=== PATIENT | female | born 1935 | race Caucasian/White ===

== ENCOUNTER 2021-04-13 11:23 | Inpatient (IN) ==
[2021-04-13] MEDS ORDERED: Lidocaine 2% PF 5 ML VIAL ONE (13:35)
[2021-04-13] MEDS ORDERED: Propofol 10 MG/ML 20 ML BTL ONE ×2 (13:35→15:08)
[2021-04-13] MEDS ORDERED: fentaNYL 250 mcg/5 ml 50 MCG/ML 5 ml VIAL (250 MCG) ONE (13:35)
[2021-04-13] MEDS ORDERED: Midazolam 2 mg/2 ml VIAL 1 mg/ml 2 ml VIAL (2 mg) ONE (13:35)
[2021-04-13] MEDS ORDERED: Etomidate 20 mg/10 ml 2 MG/ML 10 ml VIAL ONE (13:38)
[2021-04-13] MEDS ORDERED: Phenylephrine IV 10 MG/ML 1 ml VIAL ONE (13:42)
[2021-04-13] MEDS ORDERED: Ertapenem 1 GM in NS 0.9% 50 ML IVPB ONE (14:30)
[2021-04-13] MEDS ORDERED: Dexamethasone IV 4 MG/ML VIAL 1 ml VIAL ONE (15:14)
[2021-04-13] MEDS ORDERED: Ondansetron 4 mg VIAL 2 MG/ML 2 ml VIAL ONE (15:14)
[2021-04-13] MEDS ORDERED: ROPIVACAINE 5 MG/ML 30 ML BTL (0.5%) ONE (16:06)
[2021-04-13] MEDS ORDERED: Dexmedetomidine 200 mcg/2 ml 2 ml VIAL (200 mcg) ONE (16:09)
[2021-04-13] MEDS ORDERED: Acetaminophen IV 1 GM/100ML 100 ML IV ONE (16:14)
[2021-04-13] MEDS ORDERED: Acetaminophen IV 1 GM/100ML 100 ML IV PRN (16:48)
[2021-04-13] MEDS ORDERED: Ondansetron 4 mg VIAL 2 MG/ML 2 ml VIAL IV PRN ×2 (16:52→18:16)
[2021-04-13] MEDS ORDERED: D5W 1/2 NS KCl 20 meq 1000 ml 1,000 ML IV SCH (17:00)
[2021-04-13] MEDS ORDERED: fentaNYL 100 mcg/2 ml 50 MCG/ML VIAL ONE (17:53)
[2021-04-13] MEDS ORDERED: DiMENhydriNATE IV 50 mg/ml 1 ml VIAL IV PUSH PRN (18:16)
[2021-04-13] MEDS ORDERED: Naloxone 0.4 mg VIAL 0.4 mg/ml 1 ml VIAL IV PRN (18:16)
[2021-04-13] MEDS ORDERED: diPHENhydraMINE IV 50 MG/ML 1 ml VIAL (BENADRYL) IV PRN (18:16)
[2021-04-13] MEDS ORDERED: fentaNYL 100 mcg/2 ml 50 MCG/ML VIAL IV PRN (18:16)
[2021-04-14] MEDS: Heparin 5000 UNITS/ML 1 mL VIAL SUBCUT SCH ×3 (05:28→22:13)
[2021-04-14 06:04] LABS: ABS Lymphocytes 0.5 10^3/ul (1.0-4.8); ABS Monocytes 1.1 10^3/ul (0-0.8); ABS Neutrophils 10.3 10^3/ul (1.5-7.7); Hematocrit 32 % (35-47); Hemoglobin 10.3 g/dL (12.0-16.0); Lymphocyte % 4.4 %; Mean Corpuscular HGB Conc 32 g/dL (31-36); Mean Corpuscular Hemoglobin 30 pg (27-31); Mean Corpuscular Volume 93 fL (80-97); Mean Platelet Volume 7.4 fL (7.4-10.4); Platelet Count 179 10^3/uL (150-450); Red Blood Count 3.48 10^6 /uL (3.70-4.87); Red Cell Distribution Width 15 % (10-15)
[2021-04-14 06:49] LABS: Calcium 8.1 mg/dL (8.6-10.3); Potassium 3.9 mmol/L (3.5-5.0); eGFR CKD-EPI 50.7 (>60)
[2021-04-14] MEDS: Aspirin EC 81 mg TAB.EC (enteric coated) PO SCH (08:23)
[2021-04-14] MEDS: D5W 1/2 NS KCl 20 meq 1000 ml 1,000 ML IV SCH ×2 (09:30→19:12)
[2021-04-15] MEDS: D5W 1/2 NS KCl 20 meq 1000 ml 1,000 ML IV SCH ×3 (03:10→19:48)
[2021-04-15 05:55] LABS: ABS Eosinophils 0.2 10^3/ul (0-0.6); ABS Lymphocytes 0.9 10^3/ul (1.0-4.8); ABS Monocytes 1.2 10^3/ul (0-0.8); ABS Neutrophils 7.1 10^3/ul (1.5-7.7); Eosinophil % 2.2 %; Hematocrit 30 % (35-47); Hemoglobin 9.8 g/dL (12.0-16.0); Lymphocyte % 9.8 %; Mean Corpuscular HGB Conc 33 g/dL (31-36); Mean Corpuscular Hemoglobin 31 pg (27-31); Mean Corpuscular Volume 93 fL (80-97); Mean Platelet Volume 7.5 fL (7.4-10.4); Platelet Count 170 10^3/uL (150-450); Red Blood Count 3.17 10^6 /uL (3.70-4.87); Red Cell Distribution Width 15 % (10-15); White Blood Count 9.4 10^3/uL (3.5-10.8)
[2021-04-15] MEDS: Heparin 5000 UNITS/ML 1 mL VIAL SUBCUT SCH ×3 (06:25→23:32)
[2021-04-15 06:29] LABS: Blood Urea Nitrogen 27 mg/dL (6-24); CO2 Carbon Dioxide 25 mmol/L (22-32); Calcium 7.9 mg/dL (8.6-10.3); Glucose 115 mg/dL (70-100); Potassium 4.3 mmol/L (3.5-5.0); Sodium 139 mmol/L (135-145); Total Iron Binding Capacity 258 mcg/dL (250-450); Transferrin 184 mg/dL (203-362); eGFR CKD-EPI 57.6 (>60)
[2021-04-15 06:40] LABS: Anion Gap 2 mmol/L (2-11); Chloride 112 mmol/L (101-111)
[2021-04-15 06:41] LABS: % Iron Saturation 8 % (15-55); Iron < 20 ug/dL (50-212); Unsaturated Iron Binding 238 ug/dL
[2021-04-15 06:49] LABS: Ferritin 59.6 ng/mL (11-307)
[2021-04-15 06:52] LABS: Folate 8.97 ng/mL (5.90-24.80)
[2021-04-15 06:54] LABS: Vitamin B12 649 pg/mL (180-914)
[2021-04-15] MEDS: Aspirin EC 81 mg TAB.EC (enteric coated) PO SCH (09:44)
[2021-04-16] MEDS: Heparin 5000 UNITS/ML 1 mL VIAL SUBCUT SCH ×3 (06:31→21:38)
[2021-04-16] MEDS: D5W 1/2 NS KCl 20 meq 1000 ml 1,000 ML IV SCH (08:13)
[2021-04-16] MEDS: Aspirin EC 81 mg TAB.EC (enteric coated) PO SCH (09:39)
[2021-04-17] MEDS: Heparin 5000 UNITS/ML 1 mL VIAL SUBCUT SCH ×3 (06:10→22:20)
[2021-04-17] MEDS ORDERED: levETIRAcetam LIQ 500 MG/5 ML UDC PO SCH (09:00)
[2021-04-17] MEDS: Aspirin EC 81 mg TAB.EC (enteric coated) PO SCH (09:38)
[2021-04-17 11:36] LABS: Hematocrit 37 % (35-47); Mean Corpuscular HGB Conc 33 g/dL (31-36); Mean Corpuscular Hemoglobin 30 pg (27-31); Mean Corpuscular Volume 90 fL (80-97); Mean Platelet Volume 7.3 fL (7.4-10.4); Platelet Count 255 10^3/uL (150-450); Red Blood Count 4.07 10^6 /uL (3.70-4.87); Red Cell Distribution Width 15 % (10-15); White Blood Count 18.5 10^3/uL (3.5-10.8)
[2021-04-17 12:03] LABS: Calcium 8.5 mg/dL (8.6-10.3); Potassium 3.9 mmol/L (3.5-5.0)
[2021-04-17 12:08] LABS: eGFR CKD-EPI 57.6 (>60)
[2021-04-17 12:38] LABS: ABS Basophils 0.1 10^3/ul (0-0.2); ABS Lymphocytes 0.4 10^3/ul (1.0-4.8); ABS Monocytes 1.4 10^3/ul (0-0.8); ABS Neutrophils 16.5 10^3/ul (1.5-7.7); Eosinophil % 0.1 %
[2021-04-17] MEDS ORDERED: NS 0.9% 500 ml BAG 500 ML IV ONE (12:44)
[2021-04-17] MEDS ORDERED: Zosyn per Pharmacy NOTE FOLLOW UP SCH (13:00)
[2021-04-17] MEDS ORDERED: D5W 1/2 NS 40 Meq KCL 1000 ml 1,000 ML IV SCH (13:00)
[2021-04-17] MEDS ORDERED: Neomycin/Polym/Bacit TOP OINT 15 GM TOPICAL SCH (13:00)
[2021-04-17] MEDS ORDERED: Piperacillin/Tazobac ADVAN 3.375 GM in NS 0.9% 100 ml BAG 100 ML IV ONE (13:15)
[2021-04-17 13:20] LABS: Urine Appearance Clear; Urine Bilirubin Negative (Negative); Urine Blood Negative (Negative); Urine Color Yellow; Urine Glucose Negative (Negative); Urine Ketones Negative (Negative); Urine Nitrite Negative (Negative); Urine Protein Negative (Negative); Urine Specific Gravity 1.014 (1.002-1.030); Urine Urobilinogen Positive (Negative)
[2021-04-17] MEDS ORDERED: Iodixanol (CONTRAST) 320 MG/ML 100 ML SDV IV ONE (13:22)
[2021-04-17] MEDS: Neomycin/Polym/Bacit TOP OINT 15 GM TOPICAL SCH ×2 (13:54→22:20)
[2021-04-17] MEDS ORDERED: Propofol 10 MG/ML 20 ML BTL ONE (15:04)
[2021-04-17] MEDS ORDERED: Rocuronium 50 mg VIAL 10 mg/ml 5 ml VIAL (50 mg) ONE (15:07)
[2021-04-17] MEDS ORDERED: Lidocaine 2% PF 5 ML VIAL ONE (15:07)
[2021-04-17] MEDS: Acetaminophen IV 1 GM/100ML 100 ML IV SCH (15:16)
[2021-04-17] MEDS: D5W 1/2 NS 40 Meq KCL 1000 ml 1,000 ML IV SCH (15:16)
[2021-04-17] MEDS ORDERED: Bupivacaine 0.25% w/EPI 10 ML SDV ONE (15:20)
[2021-04-17] MEDS ORDERED: Ondansetron 4 mg VIAL 2 MG/ML 2 ml VIAL IV PRN (17:23)
[2021-04-17] MEDS ORDERED: HYDROmorphone 1 MG/1 ML SYRINGE IV PRN (17:23)
[2021-04-17] MEDS ORDERED: Naloxone 0.4 mg VIAL 0.4 mg/ml 1 ml VIAL IV PRN (17:23)
[2021-04-17] MEDS: ZOSYN 3.375 GM Q8H per EXTENDED INFUSION IV SCH (20:26)
[2021-04-17] MEDS ORDERED: Lactated Ringers 500 ml BAG 500 ML IV ONE (20:38)
[2021-04-17 21:36] LABS: Hematocrit 34 % (35-47); Hemoglobin 11.1 g/dL (12.0-16.0); Mean Corpuscular HGB Conc 32 g/dL (31-36); Mean Corpuscular Hemoglobin 29 pg (27-31); Mean Corpuscular Volume 91 fL (80-97); Mean Platelet Volume 7.3 fL (7.4-10.4); Platelet Count 254 10^3/uL (150-450); Red Blood Count 3.79 10^6 /uL (3.70-4.87); Red Cell Distribution Width 15 % (10-15); White Blood Count 18.7 10^3/uL (3.5-10.8)
[2021-04-17 22:15] LABS: ABS Lymphocytes 0.4 10^3/ul (1.0-4.8); ABS Monocytes 0.9 10^3/ul (0-0.8); ABS Neutrophils 17.3 10^3/ul (1.5-7.7); Calcium 7.9 mg/dL (8.6-10.3); Eosinophil % 0.1 %; Lymphocyte % 2.4 %; Macrocytosis 1+; Microcytosis 1+; Potassium 4.1 mmol/L (3.5-5.0)
[2021-04-17] MEDS ORDERED: Lactated Ringers 1000 ml BAG 1,000 ML IV ONE (22:15)
[2021-04-18] MEDS: Acetaminophen IV 1 GM/100ML 100 ML IV SCH ×4 (00:12→22:28)
[2021-04-18] MEDS: levETIRAcetam IV 250 MG in NS 0.9% 100 ml BAG 100 ML IVPB SCH ×3 (00:12→21:19)
[2021-04-18] MEDS: ZOSYN 3.375 GM Q8H per EXTENDED INFUSION IV SCH (03:38)
[2021-04-18] MEDS: metroNIDAZOLE IV 500 MG/100ML 500 MG/100 ML BAG IVPB SCH ×3 (04:11→23:08)
[2021-04-18 04:14] LABS: Hematocrit 35 % (35-47); Hemoglobin 11.3 g/dL (12.0-16.0)
[2021-04-18] MEDS: Vancomycin SOL ORALSYR 50 MG/ML ML PO SCH ×5 (04:56→21:30)
[2021-04-18] MEDS: Levothyroxine 100 MCG/5 ML VIAL IV SCH (06:02)
[2021-04-18] MEDS: Heparin 5000 UNITS/ML 1 mL VIAL SUBCUT SCH (06:02)
[2021-04-18 07:10] LABS: Hematocrit 35 % (35-47); Hemoglobin 11.5 g/dL (12.0-16.0); Mean Corpuscular HGB Conc 33 g/dL (31-36); Mean Corpuscular Hemoglobin 30 pg (27-31); Mean Corpuscular Volume 91 fL (80-97); Mean Platelet Volume 7.9 fL (7.4-10.4); Platelet Count 252 10^3/uL (150-450); Red Blood Count 3.84 10^6 /uL (3.70-4.87); Red Cell Distribution Width 15 % (10-15)
[2021-04-18 07:23] LABS: Calcium 7.7 mg/dL (8.6-10.3); Magnesium 1.6 mg/dL (1.9-2.7); Potassium 4.2 mmol/L (3.5-5.0)
[2021-04-18 07:29] LABS: eGFR CKD-EPI 42.1 (>60)
[2021-04-18 07:58] LABS: Toxic Granulation 1+
[2021-04-18 08:00] LABS: ABS Lymphocytes 0.4 10^3/ul (1.0-4.8); ABS Neutrophils 13.6 10^3/ul (1.5-7.7); Eosinophil % 0.1 %; Lymphocyte % 2.6 %
[2021-04-18 08:01] LABS: Dohle Bodies Present
[2021-04-18] MEDS ORDERED: Magnesium Sulfate 2 gm BAG 2 GM/50 ML BAG IVPB ONE (08:08)
[2021-04-18 08:28] LABS: Anisocytosis 1+
[2021-04-18] MEDS: Neomycin/Polym/Bacit TOP OINT 15 GM TOPICAL SCH ×2 (08:51→21:37)
[2021-04-18] MEDS: D5W 1/2 NS 40 Meq KCL 1000 ml 1,000 ML IV SCH ×2 (09:10→20:38)
[2021-04-19] MEDS: Acetaminophen IV 1 GM/100ML 100 ML IV SCH ×3 (05:20→23:13)
[2021-04-19 05:54] LABS: Hematocrit 28 % (35-47); Hemoglobin 8.7 g/dL (12.0-16.0); Mean Corpuscular HGB Conc 31 g/dL (31-36); Mean Corpuscular Hemoglobin 30 pg (27-31); Mean Corpuscular Volume 98 fL (80-97); Mean Platelet Volume 8.3 fL (7.4-10.4); Platelet Count 185 10^3/uL (150-450); Red Blood Count 2.87 10^6 /uL (3.70-4.87); Red Cell Distribution Width 16 % (10-15); White Blood Count 6.9 10^3/uL (3.5-10.8)
[2021-04-19] MEDS: Levothyroxine 100 MCG/5 ML VIAL IV SCH (06:26)
[2021-04-19] MEDS: metroNIDAZOLE IV 500 MG/100ML 500 MG/100 ML BAG IVPB SCH ×3 (06:26→23:56)
[2021-04-19 07:17] LABS: Anisocytosis 1+; Macrocytosis 1+; Toxic Granulation 1+
[2021-04-19 07:18] LABS: Polychromasia 1+
[2021-04-19 07:19] LABS: Burr Cells 2+
[2021-04-19 07:26] LABS: ABS Eosinophils 0.1 10^3/ul (0-0.6); ABS Lymphocytes 0.3 10^3/ul (1.0-4.8); ABS Monocytes 0.7 10^3/ul (0-0.8); ABS Neutrophils 5.9 10^3/ul (1.5-7.7); Eosinophil % 0.7 %
[2021-04-19 07:52] LABS: Calcium 7.4 mg/dL (8.6-10.3); Magnesium 2.7 mg/dL (1.9-2.7)
[2021-04-19 08:05] LABS: Potassium 6.5 mmol/L (3.5-5.0)
[2021-04-19] MEDS ORDERED: CALCIUM GLUCONATE 1GM/50ML NS 1 GM/50 ML BAG IV ONE (08:12)
[2021-04-19] MEDS ORDERED: Furosemide 40 mg/4 ml IV VIAL IV SLOW PU ONE (08:14)
[2021-04-19] MEDS ORDERED: Lactated Ringers 1000 ml BAG 1,000 ML IV ONE ×3 (08:14→10:33)
[2021-04-19] MEDS ORDERED: Dextrose 50% Syringe 50 ml 25 GM/50 ML SYRINGE IV PUSH ONE (08:17)
[2021-04-19] MEDS: Neomycin/Polym/Bacit TOP OINT 15 GM TOPICAL SCH ×2 (08:26→22:58)
[2021-04-19] MEDS: Vancomycin SOL ORALSYR 50 MG/ML ML PO SCH ×4 (08:34→23:00)
[2021-04-19 08:35] LABS: Hematocrit 32 % (35-47); Hemoglobin 10.6 g/dL (12.0-16.0); Mean Corpuscular HGB Conc 33 g/dL (31-36); Mean Corpuscular Hemoglobin 30 pg (27-31); Mean Corpuscular Volume 91 fL (80-97); Mean Platelet Volume 8.2 fL (7.4-10.4); Platelet Count 238 10^3/uL (150-450); Red Blood Count 3.52 10^6 /uL (3.70-4.87); Red Cell Distribution Width 16 % (10-15); White Blood Count 7.7 10^3/uL (3.5-10.8)
[2021-04-19] MEDS ORDERED: Pantoprazole VIAL 40 MG VIAL IV SCH (09:00)
[2021-04-19 09:22] LABS: Albumin/Globulin Ratio 1.1 (1-3); Calcium 7.4 mg/dL (8.6-10.3); Globulin 1.8 g/dL (2-4); Total Bilirubin 0.8 mg/dL (0.2-1.0); Total Protein 3.8 g/dL (6.4-8.9); eGFR CKD-EPI 19.6 (>60)
[2021-04-19] MEDS: levETIRAcetam IV 250 MG in NS 0.9% 100 ml BAG 100 ML IVPB SCH ×2 (09:35→22:38)
[2021-04-19 09:43] LABS: Potassium 6.6 mmol/L (3.5-5.0)
[2021-04-19 09:47] LABS: Anisocytosis 1+
[2021-04-19] MEDS: SODIUM ZIRCONIUM CYCLOSILICATE 10 GM PACKET PO SCH ×3 (09:47→23:56)
[2021-04-19 10:01] LABS: ABS Eosinophils 0.1 10^3/ul (0-0.6); ABS Lymphocytes 0.4 10^3/ul (1.0-4.8); ABS Monocytes 0.6 10^3/ul (0-0.8); ABS Neutrophils 6.7 10^3/ul (1.5-7.7); Eosinophil % 0.8 %
[2021-04-19 10:44] LABS: Activated Partial Thrombo Time 30.1 seconds (26.0-38.0); INR 1.2 (0.86-1.15)
[2021-04-19 11:07] LABS: Calcium 7.2 mg/dL (8.6-10.3); eGFR CKD-EPI 20.4 (>60)
[2021-04-19 11:08] LABS: Potassium 6.2 mmol/L (3.5-5.0)
[2021-04-19 11:43] LABS: Urine Appearance Cloudy; Urine Bacteria Absent (Absent); Urine Bilirubin Negative (Negative); Urine Blood 1+ (Negative); Urine Color Yellow; Urine Glucose Negative (Negative); Urine Ketones Negative (Negative); Urine Nitrite Negative (Negative); Urine Protein Negative (Negative); Urine Red Blood Cell 1+(3-5/hpf) (Absent); Urine Specific Gravity 1.009 (1.002-1.030); Urine Squamous Epithelial Cell Present (Absent); Urine Urobilinogen Negative (Negative); Urine White Blood Cell Trace(0-5/hpf) (Absent)
[2021-04-19] MEDS: D5LR 1000 ml BAG 1,000 ML IV SCH ×2 (12:33→22:36)
[2021-04-19 14:27] LABS: Calcium 7.6 mg/dL (8.6-10.3); eGFR CKD-EPI 20.7 (>60)
[2021-04-19 14:34] LABS: Potassium 5.4 mmol/L (3.5-5.0)
[2021-04-19 17:43] LABS: Albumin 2.4 g/dL (3.4-4.7); Albumin/Globulin Ratio 0.89; Gamma Globulin 0.7 g/dL (0.6-1.6)
[2021-04-19] MEDS: Pantoprazole VIAL 40 MG VIAL IV SCH (22:50)
[2021-04-20] MEDS: Acetaminophen IV 1 GM/100ML 100 ML IV SCH ×3 (05:32→22:32)
[2021-04-20] MEDS: Levothyroxine 100 MCG/5 ML VIAL IV SCH (06:21)
[2021-04-20] MEDS: metroNIDAZOLE IV 500 MG/100ML 500 MG/100 ML BAG IVPB SCH ×3 (06:24→23:00)
[2021-04-20 06:54] LABS: Hematocrit 26 % (35-47); Hemoglobin 8.8 g/dL (12.0-16.0); Mean Corpuscular HGB Conc 34 g/dL (31-36); Mean Corpuscular Hemoglobin 30 pg (27-31); Mean Corpuscular Volume 90 fL (80-97); Mean Platelet Volume 8.2 fL (7.4-10.4); Platelet Count 149 10^3/uL (150-450); Red Blood Count 2.89 10^6 /uL (3.70-4.87); Red Cell Distribution Width 15 % (10-15); White Blood Count 3.2 10^3/uL (3.5-10.8)
[2021-04-20 07:16] LABS: ALT 18 U/L (7-52); AST 21 U/L (13-39); Albumin < 1.7 g/dL (3.2-5.2); Albumin/Globulin Ratio 1.3 (1-3); Alkaline Phosphatase 51 U/L (35-149); Anion Gap 5 mmol/L (2-11); Blood Urea Nitrogen 41 mg/dL (6-24); CO2 Carbon Dioxide 22 mmol/L (22-32); Calcium 7.2 mg/dL (8.6-10.3); Chloride 106 mmol/L (101-111); Globulin 1.3 g/dL (2-4); Glucose 95 mg/dL (70-100); Magnesium 2.1 mg/dL (1.9-2.7); Potassium 4.7 mmol/L (3.5-5.0); Sodium 133 mmol/L (135-145); eGFR CKD-EPI 19.6 (>60)
[2021-04-20 07:35] LABS: Toxic Granulation 1+
[2021-04-20 07:36] LABS: Burr Cells 2+
[2021-04-20 07:38] LABS: ABS Lymphocytes 0.3 10^3/ul (1.0-4.8); ABS Monocytes 0.5 10^3/ul (0-0.8); ABS Neutrophils 2.4 10^3/ul (1.5-7.7); Acanthocytes 1+; Anisocytosis 1+; Eosinophil % 0.2 %; Lymphocyte % 8.1 %; Nucleated Red Blood Cells % 0.2
[2021-04-20] MEDS: D5LR 1000 ml BAG 1,000 ML IV SCH ×2 (09:01→21:30)
[2021-04-20] MEDS: Pantoprazole VIAL 40 MG VIAL IV SCH ×2 (09:03→20:23)
[2021-04-20] MEDS: levETIRAcetam IV 250 MG in NS 0.9% 100 ml BAG 100 ML IVPB SCH ×2 (09:03→20:24)
[2021-04-20] MEDS: Vancomycin SOL ORALSYR 50 MG/ML ML PO SCH ×4 (09:10→20:24)
[2021-04-20] MEDS: Neomycin/Polym/Bacit TOP OINT 15 GM TOPICAL SCH ×2 (09:10→20:24)
[2021-04-20 11:49] LABS: Flag, M-protein Isotype Positive (Negative)
[2021-04-20 18:05] LABS: Calcium 7.4 mg/dL (8.6-10.3); Potassium 4.3 mmol/L (3.5-5.0); eGFR CKD-EPI 19.5 (>60)
[2021-04-20] MEDS ORDERED: Dextrose 50% Syringe 50 ml 25 GM/50 ML SYRINGE IV PUSH ONE (18:12)
[2021-04-20] MEDS ORDERED: NS 0.9% 100 ml BAG 100 ML ONE (20:12)
[2021-04-21] MEDS: Acetaminophen IV 1 GM/100ML 100 ML IV SCH ×3 (06:13→22:13)
[2021-04-21 06:16] LABS: Hematocrit 29 % (35-47); Hemoglobin 9.5 g/dL (12.0-16.0); Mean Corpuscular HGB Conc 33 g/dL (31-36); Mean Corpuscular Hemoglobin 30 pg (27-31); Mean Corpuscular Volume 91 fL (80-97); Mean Platelet Volume 8.7 fL (7.4-10.4); Platelet Count 109 10^3/uL (150-450); Red Cell Distribution Width 15 % (10-15); White Blood Count 5.6 10^3/uL (3.5-10.8)
[2021-04-21 06:25] LABS: Calcium 7.2 mg/dL (8.6-10.3); Potassium 3.7 mmol/L (3.5-5.0); eGFR CKD-EPI 20.2 (>60)
[2021-04-21] MEDS: Levothyroxine 100 MCG/5 ML VIAL IV SCH (06:27)
[2021-04-21] MEDS: metroNIDAZOLE IV 500 MG/100ML 500 MG/100 ML BAG IVPB SCH (06:28)
[2021-04-21 08:04] LABS: RBC Morphology Normal (Normal)
[2021-04-21 08:05] LABS: ABS Lymphocytes 0.4 10^3/ul (1.0-4.8); ABS Monocytes 0.3 10^3/ul (0-0.8); ABS Neutrophils 4.9 10^3/ul (1.5-7.7); Eosinophil % 0.2 %; Lymphocyte % 7.3 %; Nucleated Red Blood Cells % 0.4
[2021-04-21 09:18] LABS: Hematocrit 29 % (35-47); Hemoglobin 9.5 g/dL (12.0-16.0)
[2021-04-21] MEDS: D5LR 1000 ml BAG 1,000 ML IV SCH ×2 (09:34→20:58)
[2021-04-21] MEDS: levETIRAcetam IV 250 MG in NS 0.9% 100 ml BAG 100 ML IVPB SCH ×2 (09:34→20:50)
[2021-04-21] MEDS: Pantoprazole VIAL 40 MG VIAL IV SCH ×2 (09:34→20:50)
[2021-04-21] MEDS: Vancomycin SOL ORALSYR 50 MG/ML ML PO SCH ×4 (09:54→20:51)
[2021-04-21] MEDS: Neomycin/Polym/Bacit TOP OINT 15 GM TOPICAL SCH ×2 (09:55→22:08)
[2021-04-21 09:57] LABS: Calcium 7.2 mg/dL (8.6-10.3); Potassium 3.7 mmol/L (3.5-5.0); eGFR CKD-EPI 21.1 (>60)
[2021-04-21] MEDS ORDERED: Lactated Ringers 1000 ml BAG 1,000 ML IV SCH (10:00)
[2021-04-21] MEDS ORDERED: NS 0.9% 100 ml BAG 100 ML ONE (20:41)
[2021-04-22] MEDS: Acetaminophen IV 1 GM/100ML 100 ML IV SCH ×3 (05:28→21:52)
[2021-04-22] MEDS: Levothyroxine 100 MCG/5 ML VIAL IV SCH (05:28)
[2021-04-22 06:21] LABS: Calcium 7.1 mg/dL (8.6-10.3); Phosphorus 4.1 mg/dL (2.5-5.0); Potassium 3.4 mmol/L (3.5-5.0); eGFR CKD-EPI 22.4 (>60)
[2021-04-22 06:22] LABS: Hematocrit 29 % (35-47); Hemoglobin 9.4 g/dL (12.0-16.0); Mean Corpuscular HGB Conc 33 g/dL (31-36); Mean Corpuscular Hemoglobin 30 pg (27-31); Mean Corpuscular Volume 90 fL (80-97); Red Blood Count 3.17 10^6 /uL (3.70-4.87); Red Cell Distribution Width 16 % (10-15); White Blood Count 4.8 10^3/uL (3.5-10.8)
[2021-04-22] MEDS: Pantoprazole VIAL 40 MG VIAL IV SCH ×2 (07:58→21:31)
[2021-04-22] MEDS: levETIRAcetam IV 250 MG in NS 0.9% 100 ml BAG 100 ML IVPB SCH ×2 (07:58→21:22)
[2021-04-22] MEDS: D5LR 1000 ml BAG 1,000 ML IV SCH ×2 (07:58→21:18)
[2021-04-22 08:15] LABS: Anisocytosis 2+; Burr Cells 1+
[2021-04-22 08:17] LABS: ABS Lymphocytes 0.5 10^3/ul (1.0-4.8); ABS Monocytes 0.4 10^3/ul (0-0.8); Eosinophil % 0.1 %; Lymphocyte % 9.5 %; Mean Platelet Volume 8.8 fL (7.4-10.4); Nucleated Red Blood Cells % 0.7; Platelet Count 67 10^3/uL (150-450)
[2021-04-22] MEDS ORDERED: Potassium Chloride LIQUID 20 MEQ/15 ML LIQUID PO ONE (08:59)
[2021-04-22] MEDS: Neomycin/Polym/Bacit TOP OINT 15 GM TOPICAL SCH ×2 (10:09→17:43)
[2021-04-22] MEDS: Vancomycin SOL ORALSYR 50 MG/ML ML PO SCH ×4 (10:09→21:42)
[2021-04-22] MEDS ORDERED: Vancomycin SOL ORALSYR 50 MG/ML ML PO SCH (17:00)
[2021-04-23] MEDS: Acetaminophen IV 1 GM/100ML 100 ML IV SCH ×3 (05:38→19:50)
[2021-04-23] MEDS: Levothyroxine 100 MCG/5 ML VIAL IV SCH (05:38)
[2021-04-23 06:15] LABS: Hematocrit 27 % (35-47); Hemoglobin 8.7 g/dL (12.0-16.0); Mean Corpuscular HGB Conc 33 g/dL (31-36); Mean Corpuscular Hemoglobin 30 pg (27-31); Mean Corpuscular Volume 90 fL (80-97); Mean Platelet Volume 8.4 fL (7.4-10.4); Platelet Count 39 10^3/uL (150-450); Red Blood Count 2.95 10^6 /uL (3.70-4.87); Red Cell Distribution Width 16 % (10-15); White Blood Count 3.5 10^3/uL (3.5-10.8)
[2021-04-23 06:45] LABS: Anion Gap 6 mmol/L (2-11); Blood Urea Nitrogen 33 mg/dL (6-24); CO2 Carbon Dioxide 20 mmol/L (22-32); Calcium 6.6 mg/dL (8.6-10.3); Chloride 109 mmol/L (101-111); Magnesium 1.7 mg/dL (1.9-2.7); Phosphorus 2.2 mg/dL (2.5-5.0); Sodium 135 mmol/L (135-145); eGFR CKD-EPI 32.3 (>60)
[2021-04-23] MEDS ORDERED: Lactated Ringers 1000 ml BAG 1,000 ML IV ONE (08:06)
[2021-04-23] MEDS: Pantoprazole VIAL 40 MG VIAL IV SCH ×2 (09:07→19:14)
[2021-04-23] MEDS: levETIRAcetam IV 250 MG in NS 0.9% 100 ml BAG 100 ML IVPB SCH ×2 (09:08→22:21)
[2021-04-23] MEDS: Vancomycin SOL ORALSYR 50 MG/ML ML PO SCH ×4 (09:12→19:49)
[2021-04-23] MEDS: D5LR 1000 ml BAG 1,000 ML IV SCH (09:20)
[2021-04-23] MEDS ORDERED: Lactated Ringers 1000 ml BAG 1,000 ML IV SCH (11:00)
[2021-04-23] MEDS ORDERED: Norepinephrine 16MCG/ML BAGD5W 4,000 MCG/250 ML BAG IV ONE (11:27)
[2021-04-23] MEDS: Norepinephrine 16MCG/ML BAGD5W 4,000 MCG/250 ML BAG IV SCH ×3 (12:04→22:59)
[2021-04-23 13:15] LABS: High Sens Troponin Baseline 24 pg/mL (<15)
[2021-04-23 13:18] LABS: ALT 23 U/L (7-52); AST 67 U/L (13-39); Albumin < 1.7 g/dL (3.2-5.2); Albumin/Globulin Ratio 1.3 (1-3); Alkaline Phosphatase 200 U/L (35-149); Anion Gap 5 mmol/L (2-11); Blood Urea Nitrogen 35 mg/dL (6-24); CO2 Carbon Dioxide 21 mmol/L (22-32); Calcium 6.8 mg/dL (8.6-10.3); Chloride 108 mmol/L (101-111); Globulin 1.3 g/dL (2-4); Glucose 120 mg/dL (70-100); Potassium 4.2 mmol/L (3.5-5.0); Sodium 134 mmol/L (135-145); eGFR CKD-EPI 31.4 (>60)
[2021-04-23 13:35] LABS: ABS Lymphocytes 0.6 10^3/ul (1.0-4.8); ABS Monocytes 0.4 10^3/ul (0-0.8); ABS Neutrophils 2.9 10^3/ul (1.5-7.7); Eosinophil % 0.8 %; Hematocrit 31 % (35-47); Hemoglobin 10.2 g/dL (12.0-16.0); Lymphocyte % 14.6 %; Mean Corpuscular HGB Conc 33 g/dL (31-36); Mean Corpuscular Hemoglobin 30 pg (27-31); Mean Corpuscular Volume 90 fL (80-97); Mean Platelet Volume 8.4 fL (7.4-10.4); Nucleated Red Blood Cells % 1.1; Platelet Count 44 10^3/uL (150-450); Red Blood Count 3.41 10^6 /uL (3.70-4.87); Red Cell Distribution Width 16 % (10-15); White Blood Count 3.9 10^3/uL (3.5-10.8)
[2021-04-23] MEDS: metroNIDAZOLE IV 500 MG/100ML 500 MG/100 ML BAG IVPB SCH ×2 (15:26→23:30)
[2021-04-23 15:54] LABS: Acanthocytes 2+; Platelet Morphology Clumped
[2021-04-23 15:55] LABS: Anisocytosis 2+
[2021-04-23 15:56] LABS: Hypochromasia 1+
[2021-04-23 15:58] LABS: Burr Cells 1+
[2021-04-23 17:40] LABS: Venous Bicarbonate HCO3 19.2 mmol/L (24-28)
[2021-04-23] MEDS ORDERED: Piperacillin/Tazobac ADVAN 3.375 GM in NS 0.9% 100 ml BAG 100 ML IV ONE (18:47)
[2021-04-23] MEDS ORDERED: Zosyn per Pharmacy NOTE FOLLOW UP SCH (19:00)
[2021-04-23] MEDS ORDERED: NS 0.9% 100 ml BAG 100 ML ONE ×2 (19:08)
[2021-04-23] MEDS ORDERED: NS 0.9% 1000 ml BAG 1,000 ML IV ONE (21:02)
[2021-04-23 21:16] LABS: Calcium 6.9 mg/dL (8.6-10.3); Potassium 4.4 mmol/L (3.5-5.0); eGFR CKD-EPI 26.6 (>60)
[2021-04-23] MEDS ORDERED: NS 0.9% 1,000 ML IV ONE (22:15)
[2021-04-23] MEDS: ZOSYN 3.375 GM Q12H per EXTENDED INFUSION IV SCH (23:30)
[2021-04-24] MEDS ORDERED: NS 0.9% 500 ml BAG 500 ML IV ONE (00:03)
[2021-04-24] MEDS: Norepinephrine 16MCG/ML BAGD5W 4,000 MCG/250 ML BAG IV SCH ×6 (02:11→17:00)
[2021-04-24 04:22] LABS: Hematocrit 31 % (35-47); Hemoglobin 10.2 g/dL (12.0-16.0); Mean Corpuscular HGB Conc 33 g/dL (31-36); Mean Corpuscular Hemoglobin 30 pg (27-31); Mean Corpuscular Volume 91 fL (80-97); Mean Platelet Volume 8.7 fL (7.4-10.4); Platelet Count 45 10^3/uL (150-450); Red Blood Count 3.43 10^6 /uL (3.70-4.87); Red Cell Distribution Width 16 % (10-15); White Blood Count 7.5 10^3/uL (3.5-10.8)
[2021-04-24 04:49] LABS: Anisocytosis 1+; Burr Cells 2+
[2021-04-24 04:50] LABS: ABS Lymphocytes 0.4 10^3/ul (1.0-4.8); ABS Monocytes 0.3 10^3/ul (0-0.8); ABS Neutrophils 6.8 10^3/ul (1.5-7.7); ABS Nucleated RBC 0.1 10^3/ul; Eosinophil % 0.1 %; Lymphocyte % 4.9 %; Nucleated Red Blood Cells % 0.7
[2021-04-24 05:00] LABS: ALT 26 U/L (7-52); AST 65 U/L (13-39); Albumin < 1.7 g/dL (3.2-5.2); Albumin/Globulin Ratio 1.2 (1-3); Alkaline Phosphatase 224 U/L (35-149); Anion Gap 8 mmol/L (2-11); Blood Urea Nitrogen 38 mg/dL (6-24); CO2 Carbon Dioxide 17 mmol/L (22-32); Calcium 6.7 mg/dL (8.6-10.3); Chloride 107 mmol/L (101-111); Globulin 1.4 g/dL (2-4); Glucose 102 mg/dL (70-100); Phosphorus 4.3 mg/dL (2.5-5.0); Potassium 4.6 mmol/L (3.5-5.0); Sodium 132 mmol/L (135-145); Total Protein 3.1 g/dL (6.4-8.9); eGFR CKD-EPI 26.7 (>60)
[2021-04-24] MEDS: Levothyroxine 100 MCG/5 ML VIAL IV SCH (06:20)
[2021-04-24] MEDS: Acetaminophen IV 1 GM/100ML 100 ML IV SCH ×3 (06:20→20:51)
[2021-04-24] MEDS: metroNIDAZOLE IV 500 MG/100ML 500 MG/100 ML BAG IVPB SCH ×3 (08:12→22:37)
[2021-04-24] MEDS: levETIRAcetam IV 250 MG in NS 0.9% 100 ml BAG 100 ML IVPB SCH ×2 (09:08→20:57)
[2021-04-24] MEDS: Pantoprazole VIAL 40 MG VIAL IV SCH ×2 (09:08→20:50)
[2021-04-24] MEDS: Vancomycin SOL ORALSYR 50 MG/ML ML PO SCH ×4 (09:23→21:05)
[2021-04-24] MEDS: ZOSYN 3.375 GM Q12H per EXTENDED INFUSION IV SCH ×2 (12:35→23:42)
[2021-04-24] MEDS ORDERED: Phenylephrine IV 10 MG/ML 1 ml VIAL ONE (16:23)
[2021-04-24] MEDS ORDERED: Phenylephrine DRIP 0.2 MG/ML in NS 0.9% 250 ML (IVPREMIX) IV SCH (17:00)
[2021-04-25] MEDS: Acetaminophen IV 1 GM/100ML 100 ML IV SCH ×2 (06:12→13:50)
[2021-04-25] MEDS: Levothyroxine 100 MCG/5 ML VIAL IV SCH (06:12)
[2021-04-25] MEDS: metroNIDAZOLE IV 500 MG/100ML 500 MG/100 ML BAG IVPB SCH ×2 (06:18→17:21)
[2021-04-25] MEDS ORDERED: Furosemide 40 mg/4 ml IV VIAL IV SLOW PU ONE (08:12)
[2021-04-25 08:53] LABS: Hematocrit 27 % (35-47); Hemoglobin 8.8 g/dL (12.0-16.0); Mean Corpuscular HGB Conc 33 g/dL (31-36); Mean Corpuscular Hemoglobin 30 pg (27-31); Mean Corpuscular Volume 91 fL (80-97); Mean Platelet Volume 10.6 fL (7.4-10.4); Platelet Count 43 10^3/uL (150-450); Red Blood Count 2.95 10^6 /uL (3.70-4.87); Red Cell Distribution Width 16 % (10-15); White Blood Count 7.3 10^3/uL (3.5-10.8)
[2021-04-25 09:16] LABS: ALT 21 U/L (7-52); AST 43 U/L (13-39); Alkaline Phosphatase 228 U/L (35-149); Blood Urea Nitrogen 42 mg/dL (6-24); Chloride 104 mmol/L (101-111); Magnesium 2.1 mg/dL (1.9-2.7); Phosphorus 5.6 mg/dL (2.5-5.0); Potassium 4.8 mmol/L (3.5-5.0); Sodium 130 mmol/L (135-145); eGFR CKD-EPI 22.8 (>60)
[2021-04-25 09:51] LABS: Anisocytosis 1+; Burr Cells 2+; Polychromasia 1+
[2021-04-25 09:52] LABS: Hypochromasia 2+
[2021-04-25 09:53] LABS: ABS Lymphocytes 0.2 10^3/ul (1.0-4.8); ABS Monocytes 0.1 10^3/ul (0-0.8); ABS Nucleated RBC 0.1 10^3/ul; Eosinophil % 0.2 %; Lymphocyte % 2.1 %; Nucleated Red Blood Cells % 1.2
[2021-04-25] MEDS: levETIRAcetam IV 250 MG in NS 0.9% 100 ml BAG 100 ML IVPB SCH (10:13)
[2021-04-25] MEDS: Pantoprazole VIAL 40 MG VIAL IV SCH (10:14)
[2021-04-25] MEDS: Vancomycin SOL ORALSYR 50 MG/ML ML PO SCH ×3 (10:14→17:32)
[2021-04-25 10:17] LABS: Albumin < 1.7 g/dL (3.2-5.2); Albumin/Globulin Ratio 1.3 (1-3); Anion Gap 15 mmol/L (2-11); CO2 Carbon Dioxide 11 mmol/L (22-32); Globulin 1.3 g/dL (2-4); Glucose 38 mg/dL (70-100); Total Protein < 3.0 g/dL (6.4-8.9)
[2021-04-25 12:50] LABS: PO2 Arterial 70 mmHg (80-100)
[2021-04-25 12:55] LABS: PCO2 Arterial <20 mmHg (35-45)
[2021-04-25] MEDS: ZOSYN 3.375 GM Q12H per EXTENDED INFUSION IV SCH (13:29)
[2021-04-25] MEDS: Norepinephrine 16MCG/ML BAGD5W 4,000 MCG/250 ML BAG IV SCH (15:14)
[2021-04-25] MEDS ORDERED: LORazepam 2 mg VIAL 1 ml IV PUSH PRN (17:23)
[2021-04-25] MEDS ORDERED: Lorazepam PYXIS KEY ONE (17:35)
[2021-04-25] MEDS ORDERED: Scopolamine 1 mg/72hr PATCH TRANSDERM SCH (18:00)
[2021-04-25 18:08] VITALS: BP 82/62
[2021-04-26 21:46] LABS: HIT ELISA 0.091 OD (<0.400); Heparin PF4 Antibody Interp Negative (Negative)
== END 2021-04-25 19:09 | disposition expired | DRG 329 ==
LOC: ED 11:23 → SDS 15:24 → SSU 15:24 → ICU 04-23 11:37
PROVIDERS: ADMIT Surgery; ATTEND Internal Medicine